=== PATIENT | male | born 1995 | race Hispanic/Latino ===

== ENCOUNTER 2022-08-26 09:19 | Emergency (ER) | payer OTHER, SELFPAY ==
[2022-08-26 09:43] LABS: Urine Blood Trace-intact (Negative); Urine Glucose Negative (Negative); Urine Protein Negative (Negative); Urine pH 6.5 (5.0-7.0)
[2022-08-26] MEDS ORDERED: FAMOTIDINE 20 MG/2 ML VIAL IV ONE (09:48)
[2022-08-26] MEDS ORDERED: KETOROLAC 30 MG/ML INJ ONE (09:48)
[2022-08-26] MEDS ORDERED: ONDANSETRON 4 MG/2 ML VIAL ONE (09:48)
[2022-08-26] MEDS ORDERED: NA CHLORIDE 0.9% 1,000 ML ONE (09:48)
[2022-08-26 09:54] LABS: Absolute Lymphocytes (CBC) 2.3 K/uL (0.7-4.9); Hematocrit 47.2 % (39.6-49.0); Lymphocytes % 26.9 % (15.3-44.8); MCV 85.1 fL (80-100); MPV 7.2 fL (7.6-11.3); RBC Red Blood Cell Count 5.55 M/uL (4.33-5.43)
[2022-08-26 10:14] LABS: Albumin 3.8 g/dL (3.4-5.0); Bilirubin Total 0.8 mg/dL (0.2-1.0); Potassium 4.2 mmol/L (3.5-5.1); Protein, Total 8.2 g/dL (6.4-8.2)
--- NOTE | 2022-08-26 10:33 | RAD REPORT ---
EXAM DESCRIPTION: US - Abdomen Exam Limited - 08/26/2022 10:14 am CLINICAL HISTORY: ABD PAIN COMPARISON: No comparisons FINDINGS: No gallstones, sludge or other abnormalities within the gallbladder lumen. There is no wal l thickening or pericholecystic fluid. No common duct stone or biliary tree dilatation identified. Partially imaged liver shows increased echogenicity likely a diffuse fatty infiltration. IMPRESSION: Normal gallbladder and biliary tree ultrasound. Fatty infiltration pattern seen in any partially imaged liver.
--- NOTE | 2022-08-26 11:08 | ER ---
Nurse's Notes [facility] Name: Tho Washington Age: 26 yrs Sex: Male : 1995 Arrival Date: 08/26/2022 Time: 09:23 Bed 13 Private MD: Diagnosis: Upper abdominal pain, unspecified Presentation: 08/26 09:28 Chief complaint: Patient states: Upper/RUQ abd pain for 3 days with nausea. Coronavirus ll1 screen: Vaccine status: Patient reports being unvaccinated. Client denies travel out of the [place] in the last 14 days. At this time, the client does not indicate any symptoms associated with coronavirus-19. Ebola Screen: Patient denies travel to an Ebola-affected area in the 21 days before illness onset. Initial Sepsis Screen: Does the patient meet any 2 criteria? No. Patient's initial sepsis screen is negative. Does the patient have a suspected source of infection? Yes: Acute abdominal pain. Risk Assessment: Do you want to hurt yourself or someone else? Patient reports no desire to harm self or others. Onset of symptoms was August 24, 2022. 09:28 Method Of Arrival: Ambulatory ll1 09:28 Acuity: ELLIOTT 3 ll1 Triage Assessment: :30 General: Appears uncomfortable, Behavior is calm, cooperative, appropriate for age. ll1 Pain: Complains of pain in abdomen Pain began 2-3 days ago. Neuro: No deficits noted. Cardiovascular: No deficits noted. GI: Reports upper abdominal pain, nausea. Historical: - Allergies: : No Known Allergies; ll1 - PMHx: : None; ll1 - PSHx: : None; ll1 - Immunization history:: Client reports having NOT received the Covid vaccine. - Social history:: Smoking status: Patient reports the use of cigarette tobacco products, denies chronic smoking, but will smoke occasionally. Screenin:30 [facility] ED Fall Risk Assessment (Adult) History of falling in the last 3 months, ko1 including since admission No falls in past 3 months (0 pts) Confusion or Disorientation No (0 pts) Intoxicated or Sedated No (0 pts) Impaired Gait No (0 pts) Mobility Assist Device Used No (0 pt) Altered Elimination No (0 pt) Score/Fall Risk Level 0 - 2 = Low Risk Oriented to surroundings, Maintained a safe environment, Educated pt \T\ family on fall prevention, incl call for assistance when getting out of bed, Assessed \T\ reinforced patient's understanding of fall precautions, Provided non-skid footwear, Hourly rounding (assess needs \T\ fall precautionary measures) done, Used ambulatory aids as needed (educated on \T\ assisted with), Used gait belt as appropriate. Abuse screen: Denies threats or abuse. Denies injuries from another. Nutritional screening: No deficits noted. Tuberculosis screening: No symptoms or risk factors identified. Assessment: 09:30 General: Appears in no apparent distress. uncomfortable, Behavior is calm, cooperative, ko1 appropriate for age. Pain: Complains of pain in abdomen. Neuro: No deficits noted. Cardiovascular: No deficits noted. Respiratory: No deficits noted. GI: No deficits noted. Reports lower abdominal pain, nausea. : No deficits noted. EENT: No deficits noted. Derm: No deficits noted. Musculoskeletal: No deficits noted. Vital Signs: 09:28 BP 128 / 85; Pulse 76; Resp 17; Temp 98.3(TE); Pulse Ox 100% on R/A; Weight 113.4 kg; ll1 Height 5 ft. 6 in. (167.64 cm); Pain 6/10; 11:31 BP 128 / 64; Pulse 77; Resp 16; Pulse Ox 99% ; ko1 09:28 Body Mass Index 40.35 (113.40 kg, 167.64 cm) ll1 ED Course: :23 Patient arrived in ED. as 09:23 Lupe Brown FNP-C [facility]. kb 09:23 Alphonso Liang DO is Attending Physician. kb 09:28 Mariella Murray, PRESLEY is Primary Nurse. ko1 09:28 Arm band placed on Patient placed in an exam room, on a stretcher. ll1 09:30 Triage completed. ll1 09:30 Patient has correct armband on for positive identification. Bed in low position. Call ko1 light in reach. campus monitor on. Pulse ox on. :30 Inserted saline lock: 20 gauge in right antecubital area, using aseptic technique. ko1 Blood collected. :53 CBC with Diff Sent. ko1 09:53 Lipase Sent. ko1 :53 CMP Sent. ko1 10:09 US Abdomen Limited In Process Unspecified. EDMS 11:31 No provider procedures requiring assistance completed. IV discontinued, intact, ko1 bleeding controlled, No redness/swelling at site. Pressure dressing applied. Administered Medications: 09:50 Drug: TORadol - (ketorolac) 15 mg Route: IVP; Site: right antecubital; ko1 11:15 Follow up: Response: No adverse reaction; Pain is decreased ko1 09:53 Drug: NS 0.9% 1000 ml Route: IV; Rate: 1 bolus; Site: right antecubital; ko1 11:14 Follow up: Response: No adverse reaction; IV Status: Completed infusion ko1 09:53 Drug: Zofran (Ondansetron) 4 mg Route: IVP; Site: right antecubital; ko1 11:15 Follow up: Response: No adverse reaction; Nausea is decreased ko1 09:56 Drug: Pepcid (famotidine) 20 mg Route: IVP; Site: right antecubital; ko1 11:15 Follow up: Response: No adverse reaction ko1 11:09 Drug: Bentyl (dicyclomine) 20 mg Route: PO; ko1 Medication: 11:31 VIS not applicable for this client. ko1 Outcome: 11:07 Discharge ordered by . kalpesh 11:31 Discharged to home ambulatory. ko1 11:31 Condition: improved 11:31 Discharge instructions given to patient, Instructed on discharge instructions, follow up and referral plans. medication usage, Demonstrated understanding of instructions, follow-up care, medications, Prescriptions given X 3. 11:39 Patient left the ED. ko1 Signatures: Dispatcher [employer] EDVT Lupe Brown FNP-C FNP-Kely Lorenzo as Cheikh Avalos, RN RN ll1 Mariella Murray, PRESLEY RN ko1
--- NOTE | 2022-08-26 11:08 | EDPHYS ---
Physician Documentation [facility] Name: Tho Washington Age: 26 yrs Sex: Male : 1995 Arrival Date: 08/26/2022 Time: 09:23 Bed 13 Private MD: ED Physician Alphonso Liang HPI: 08/26 10:58 This 26 yrs old Male presents to ER via Ambulatory with complaints of kb Epigastric Pain, Nausea. 10:58 The patient presents with abdominal pain in the upper abdomen. Onset: The kb symptoms/episode began/occurred 3 day(s) ago. The symptoms do not radiate. Associated signs and symptoms: Pertinent positives: nausea, Pertinent negatives: constipation, diarrhea, vomiting. The symptoms are described as constant. Modifying factors: The symptoms are alleviated by nothing, the symptoms are aggravated by nothing. Severity of pain: At its worst the pain was moderate in the emergency department the pain is unchanged. The patient has not experienced similar symptoms in the past. The patient has not recently seen a physician. Patient is a 26-year-old male with no medical history presents for 3-day history of upper abdominal pain with nausea. States pain started in right upper quadrant is moved to the left upper quadrant. Denies vomiting diarrhea constipation or fever. States pain does not get worse after eating but he feels like he cannot get full.. Historical: - Allergies: 09:28 No Known Allergies; ll1 - PMHx: 09:28 None; ll1 - PSHx: 09:28 None; ll1 - Immunization history:: Client reports having NOT received the Covid vaccine. - Social history:: Smoking status: Patient reports the use of cigarette tobacco products, denies chronic smoking, but will smoke occasionally. ROS: 11:02 Constitutional: Negative for fever, chills, and weight loss. kb 11:02 Abdomen/GI: Positive for abdominal pain, nausea, Negative for vomiting, diarrhea, constipation. 11:02 All other systems are negative. Exam: 11:02 Constitutional: This is a well developed, well nourished patient who is awake, alert, kb and in no acute distress. Head/Face: Normocephalic, atraumatic. ENT: Moist Mucous membranes Cardiovascular: Regular rate and rhythm with a normal S1 and S2. No gallops, murmurs, or rubs. No pulse deficits. Respiratory: Respirations even and unlabored. No increased work of breathing. Talking in full sentences Skin: Warm, dry with normal turgor. Normal color. MS/ Extremity: Pulses equal, no cyanosis. Neurovascular intact. Full, normal range of motion. Neuro: Awake and alert, GCS 15, oriented to person, place, time, and situation. Moves all extremities. Normal gait. 11:02 Abdomen/GI: Inspection: abdomen appears normal, Bowel sounds: normal, in all quadrants, Palpation: soft, in all quadrants, mild abdominal tenderness, in the right upper quadrant. Vital Signs: 09:28 BP 128 / 85; Pulse 76; Resp 17; Temp 98.3(TE); Pulse Ox 100% on R/A; Weight 113.4 kg; ll1 Height 5 ft. 6 in. (167.64 cm); Pain 6/10; 11:31 BP 128 / 64; Pulse 77; Resp 16; Pulse Ox 99% ; ko1 09:28 Body Mass Index 40.35 (113.40 kg, 167.64 cm) ll1 MDM: 09:26 Patient medically screened. kb 11:02 Differential diagnosis: cholecystitis, Cholelithiasis, gastritis, non-specific abd kb pain. Data reviewed: vital signs, nurses notes. Counseling: I had a detailed discussion with the patient and/or guardian regarding: the historical points, exam findings, and any diagnostic results supporting the discharge/admit diagnosis, lab results, radiology results, the need for outpatient follow up, a family practitioner, a scrap sorter, to return to the emergency department if symptoms worsen or persist or if there are any questions or concerns that arise at home. 08/26 09:32 Order name: CBC with Diff; Complete Time: 10:00 kb 08/26 09:32 Order name: CMP; Complete Time: 10:15 kb 08/26 09:32 Order name: Lipase; Complete Time: 10:15 kb 08/26 09:32 Order name: US Abdomen Limited; Complete Time: 10:45 kb 08/26 09:43 Order name: Urine Dipstick-Ancillary; Complete Time: 09:53 EDMS 08/26 09:32 Order name: IV Saline Lock; Complete Time: 09:52 kb 08/26 09:32 Order name: Labs collected and sent; Complete Time: 09:52 kb 08/26 09:32 Order name: Urine Dipstick-Ancillary (obtain specimen); Complete Time: 09:41 kb Administered Medications: 09:50 Drug: TORadol - (ketorolac) 15 mg Route: IVP; Site: right antecubital; ko1 11:15 Follow up: Response: No adverse reaction; Pain is decreased ko1 09:53 Drug: NS 0.9% 1000 ml Route: IV; Rate: 1 bolus; Site: right antecubital; ko1 11:14 Follow up: Response: No adverse reaction; IV Status: Completed infusion ko1 09:53 Drug: Zofran (Ondansetron) 4 mg Route: IVP; Site: right antecubital; ko1 11:15 Follow up: Response: No adverse reaction; Nausea is decreased ko1 09:56 Drug: Pepcid (famotidine) 20 mg Route: IVP; Site: right antecubital; ko1 11:15 Follow up: Response: No adverse reaction ko1 11:09 Drug: Bentyl (dicyclomine) 20 mg Route: PO; ko1 Disposition: 19:20 Co-signature as Attending Physician, Alphonso LAWSON was immediately available on-site ms3 in the Emergency Department for consultation in the care of the patient. Disposition Summary: 08/26/22 11:07 Discharge Ordered Location: Home kb Condition: Stable kb Diagnosis - Upper abdominal pain, unspecified kb Followup: kb - With: Emergency Department - When: As needed - Reason: Worsening of condition Followup: kb - With: Private Physician - When: 2 - 3 days - Reason: Recheck today's complaints, Continuance of care, Re-evaluation by your physician Discharge Instructions: - Discharge Summary Sheet kb - Abdominal Pain, Adult, [id number] kb Forms: - Medication Reconciliation Form kb - Thank You Letter kb - Antibiotic Education kb - Prescription Opioid Use kb Prescriptions: - Zofran 4 mg Oral Tablet - take 1 tablet by ORAL route every 8 hours As needed; 15 tablet; Refills: 0, kb Product Selection Permitted - dicyclomine 20 mg Oral Tablet - take 1 tablet by ORAL route 4 times per day As needed; 20 tablet; Refills: 0, kb Product Selection Permitted - Protonix 40 mg Oral Tablet - take 1 tablet by ORAL route once daily; 30 tablet; Refills: 0, Product kb Selection Permitted Signatures: Dispatcher [employer] Lupe Robb, CONTRACTING ANALYST-C CONTRACTING ANALYST-Cheikh Boo, RN RN ll1 Alphonso Liang, DO KRUEGER ms3 Mariella Murray, RN RN ko1
[2022-08-26] MEDS ORDERED: DICYCLOMINE HCL 10 MG CAP ONE (11:14)
[2022-08-26 11:47] VITALS: TEMP 98.3
[2022-08-26 11:48] VITALS: BP 128/64; O2SAT 99
== END 2022-08-26 11:39 | disposition home or self-care (01) ==
LOC: ER 09:19
DX: R10.13 Epigastric pain (principal)
CPT/HCPCS: 36415; 76705; 80053; 81003; 83690; 85025; 96361; 96374; 96375; 99284; J2405; J7030

== ENCOUNTER 2022-12-27 06:14 | Inpatient (IN) | payer SELFPAY ==
[2022-12-27 06:39] LABS: Lymphocytes % 7.5 % (15.3-44.8); MCV 86.2 fL (80-100); RBC Red Blood Cell Count 5.45 M/uL (4.33-5.43)
[2022-12-27 06:55] LABS: Albumin 3.7 g/dL (3.4-5.0); Potassium 4.1 mEq/L (3.5-5.1); Protein, Total 8.4 g/dL (6.4-8.2)
[2022-12-27 07:00] LABS: Specific Gravity 1.021 (1.005-1.030); Urine Bacteria None Seen /HPF (<20); Urine Bilirubin NEGATIVE (Negative); Urine Blood Negative (Negative); Urine Clarity Turbid (Clear); Urine Color Yellow (Yellow); Urine Glucose NEGATIVE (Negative); Urine Mucus 2+ /HPF (None Seen); Urine Protein 1+ (Negative); Urine RBC <5 /HPF (None Seen); Urine Urobilinogen Normal (Normal); Urine pH 7.5 (5.0-7.0)
[2022-12-27] MEDS ORDERED: MORPHINE 2 MG/ML SYR ONE ×2 (07:26→08:29)
[2022-12-27] MEDS ORDERED: ONDANSETRON 4 MG/2 ML VIAL ONE ×2 (07:27→12:11)
[2022-12-27] MEDS ORDERED: PIPERACIL/TAZO 3.375 GM VIAL IV ONE (07:27)
[2022-12-27] MEDS ORDERED: NA CHLORIDE 0.9% 1,000 ML ONE ×2 (07:27→08:29)
--- NOTE | 2022-12-27 07:50 | RAD REPORT ---
EXAM DESCRIPTION: CT - Abdomen Pelvis W Contrast - 12/27/2022 7:33 am CLINICAL HISTORY: Abdominal pain COMPARISON: none. TECHNIQUE: Computed axial tomography of the abdomen pelvis was obtained. 100 cc Isovue-300 was admin istered intravenously. Oral contrast was not requested which limits evaluation of bowel and appendix All CT scans are performed using dose optimization technique as appropriate and may include automated exposure control or mA/KV adjustment according to patient size. FINDINGS: Fatty liver Spleen, pancreas, adrenal and kidneys appear unremarkable. There is no evidence of diverticulitis. The appendix extends medially and and inferiorly from the cecum. Distal appendix is dilated. Large am ount of stranding surrounds the distal appendix with small amount of ill-defined fluid. No free air. No abscess IMPRESSION: Appendicitis which may be perforated
--- NOTE | 2022-12-27 08:07 | EDPHYS ---
Physician Documentation [facility] Name: Tho Washington Age: 27 yrs Sex: Male : 1995 Arrival Date: 12/27/2022 Time: 06:14 Bed 5 Private MD: ED Physician Kuldeep Vidales HPI: 12/27 08:01 This 27 yrs old Male presents to ER via Ambulatory with complaints of zeferino Abdominal Pain. 08:01 The patient presents with abdominal pain in the lower abdomen. Onset: The zeferino symptoms/episode began/occurred 3 day(s) ago. The symptoms do not radiate. Associated signs and symptoms: Pertinent positives: nausea and vomiting. Historical: - Allergies: 06:26 No Known Allergies; rv - PMHx: 06:26 Ulcer; rv - PSHx: :26 None; rv - Immunization history:: Adult Immunizations up to date. - Social history:: Smoking status: Patient reports the use of cigarette tobacco products, smokes one pack cigarettes per day. ROS: 08:03 Constitutional: Negative for fever, chills, and weight loss, Eyes: Negative for injury, zeferino pain, redness, and discharge, ENT: Negative for injury, pain, and discharge, Neck: Negative for injury, pain, and swelling, Cardiovascular: Negative for chest pain, palpitations, and edema, Respiratory: Negative for shortness of breath, cough, wheezing, and pleuritic chest pain, Back: Negative for injury and pain, : Negative for injury, bleeding, discharge, and swelling, MS/Extremity: Negative for injury and deformity, Skin: Negative for injury, rash, and discoloration, Neuro: Negative for headache, weakness, numbness, tingling, and seizure, Psych: Negative for depression, anxiety, suicide ideation, homicidal ideation, and hallucinations, Allergy/Immunology: Negative for hives, rash, and allergies, Endocrine: Negative for neck swelling, polydipsia, polyuria, polyphagia, and marked weight changes, Hematologic/Lymphatic: Negative for swollen nodes, abnormal bleeding, and unusual bruising. 08:03 Abdomen/GI: Positive for abdominal pain, nausea and vomiting, of the epigastric area, right upper quadrant and left upper quadrant. Exam: 08:03 Constitutional: This is a well developed, well nourished patient who is awake, alert, zeferino and in no acute distress. Head/Face: Normocephalic, atraumatic. Eyes: Pupils equal round and reactive to light, extra-ocular motions intact. Lids and lashes normal. Conjunctiva and sclera are non-icteric and not injected. Cornea within normal limits. Periorbital areas with no swelling, redness, or edema. ENT: Nares patent. No nasal discharge, no septal abnormalities noted. Tympanic membranes are normal and external auditory canals are clear. Oropharynx with no redness, swelling, or masses, exudates, or evidence of obstruction, uvula midline. Mucous membranes moist. Neck: Trachea midline, no thyromegaly or masses palpated, and no cervical lymphadenopathy. Supple, full range of motion without nuchal rigidity, or vertebral point tenderness. No Meningismus. Chest/axilla: Normal chest wall appearance and motion. Nontender with no deformity. No lesions are appreciated. Cardiovascular: Regular rate and rhythm with a normal S1 and S2. No gallops, murmurs, or rubs. Normal PMI, no JVD. No pulse deficits. Respiratory: Lungs have equal breath sounds bilaterally, clear to auscultation and percussion. No rales, rhonchi or wheezes noted. No increased work of breathing, no retractions or nasal flaring. Back: No spinal tenderness. No costovertebral tenderness. Full range of motion. Male : Normal genitalia with no discharge or lesions. Skin: Warm, dry with normal turgor. Normal color with no rashes, no lesions, and no evidence of cellulitis. MS/ Extremity: Pulses equal, no cyanosis. Neurovascular intact. Full, normal range of motion. Neuro: Awake and alert, GCS 15, oriented to person, place, time, and situation. Cranial nerves II-XII grossly intact. Motor strength 5/5 in all extremities. Sensory grossly intact. Cerebellar exam normal. Normal gait. Psych: Awake, alert, with orientation to person, place and time. Behavior, mood, and affect are within normal limits. 08:03 Abdomen/GI: Inspection: distension, that is moderate, Bowel sounds: diminished, in all quadrants, Palpation: moderate abdominal tenderness, rebound tenderness, voluntary guarding, is elicited in the right lower quadrant and left lower quadrant, Liver: no appreciated palpable abnormalities, Hernia: not appreciated. Vital Signs: 06:24 BP 132 / 81; Pulse 92; Resp 18; Temp 98.1(TE); Pulse Ox 100% ; Weight 113.4 kg; Height rv 5 ft. 6 in. ; Pain 8/10; 07:30 BP 121 / 78; Pulse 85; Resp 18; Pulse Ox 99% ; ko1 08:09 BP 131 / 71; Pulse 82; Resp 16; Pulse Ox 100% ; ko1 09:00 BP 109 / 75; Pulse 93; Resp 16; Pulse Ox 100% ; ko1 06:24 Body Mass Index 40.35 (113.40 kg, 167.64 cm) rv 06:24 Pain Scale: Adult rv MDM: 07:06 Patient medically screened. [facility] 08:03 Differential diagnosis: appendicitis, bowel obstruction, Cholelithiasis, gastritis, GI zeferino Bleed, Irritable bowel syndrome, non-specific abd pain, pancreatitis, Peptic Ulcer Disease, Peritonitis. Data reviewed: vital signs, nurses notes, lab test result(s), EKG, radiologic studies, CT scan. Consideration of Admission/Observation Patient was admitted/placed on observation. Escalation of care including admission/observation considered. Independent interpretation of the following test(s) in the Emergency Department CT Scan: My interpretation is perforated appendicitis. Test considered but Not performed: Ultrasound no abd usg. Care significantly affected by the following chronic conditions: Obesity, pud. 12/27 06:26 Order name: CBC with Diff; Complete Time: 07:07 kdr 12/27 06:26 Order name: CMP; Complete Time: 07:07 kdr 12/27 06:26 Order name: Lipase; Complete Time: 07:07 kdr 12/27 06:26 Order name: Urinalysis w/ reflexes; Complete Time: 07:07 kdr 12/27 07:09 Order name: CT Abd/Pelvis - IV Contrast Only; Complete Time: 07:51 zeferino 12/27 06:26 Order name: IV Saline Lock; Complete Time: 06:42 kdr 12/27 06:26 Order name: Labs collected and sent; Complete Time: 06:42 kdr 12/27 08:00 Order name: NPO; Complete Time: 08:01 zeferino Administered Medications: 07:27 Drug: NS 0.9% IV 1000 ml Route: IV; Rate: 1 bolus; Site: right antecubital; ko1 07:27 Drug: Ondansetron IVP 4 mg Route: IVP; Site: right antecubital; ko1 08:00 Follow up: Response: No adverse reaction; Nausea is decreased ko1 07:29 Drug: morphine IVP or IV 2 mg Route: IVP; Infused Over: 4 mins; Site: right antecubital;ko1 08:00 Follow up: Response: No adverse reaction; Pain is decreased ko1 07:32 Drug: Piperacillin-Tazobactam IVPB 3.375 grams Route: IVPB; Infused Over: 60 mins; ko1 Site: right antecubital; 08:27 Drug: morphine IVP or IV 2 mg Route: IVP; Infused Over: 4 mins; Site: right antecubital;bp 08:28 Drug: NS 0.9% IV 1000 ml Route: IV; Rate: 1 bolus; Site: right antecubital; bp 08:28 Drug: Famotidine IVP 20 mg Route: IVP; Site: right antecubital; bp Disposition Summary: 12/27/22 08:06 Hospitalization Ordered Hospitalization Status: Inpatient Admission zeferino Provider: Yonathan Alvarez cha [facility] zeferino Condition: Fair zeferino Problem: new zeferino Symptoms: are unchanged zeferino Bed/Room Type: Standard [facility] Room Assignment: 218(12/27/22 10:50) dw Diagnosis - Acute appendicitis with generalized peritonitis - perforated zeferino - Elevated white blood cell count zeferino Forms: - Medication Reconciliation Form zeferino - SBAR form zeferino Signatures: Dispatcher [employer] Chiqui Multani RN RN dw Anderson, Corey, MD MD cha Rittger, Kevin, MD MD kdr Peltier, Brian, RN RN bp Vicente, Ronaldo, RN RN rv Oliver, Kathy, RN RN ko1 Corrections: (The following items were deleted from the chart) 10:50 08:06 zeferino dw
--- NOTE | 2022-12-27 08:07 | ER ---
Nurse's Notes [facility] Name: Tho Washington Age: 27 yrs Sex: Male : 1995 Arrival Date: 12/27/2022 Time: 06:14 Bed 5 Private MD: Diagnosis: Acute appendicitis with generalized peritonitis-perforated;Elevated white blood cell count Presentation: 12/27 06:24 Chief complaint: Patient states: lower abdominal pain started 3 days ago with nausea rv and vomiting yesterday. undocumented fever today. pain rad to RLQ this morning. hx of gastric ulcer. last meal 5pm yesterday, last liquid at 0600 today. Coronavirus screen: Vaccine status: Patient reports being unvaccinated. Ebola Screen: Patient negative for fever greater than or equal to 101.5 degrees Fahrenheit, and additional compatible Ebola Virus Disease symptoms Patient denies exposure to infectious person. Patient denies travel to an Ebola-affected area in the 21 days before illness onset. Initial Sepsis Screen: Does the patient meet any 2 criteria? No. Patient's initial sepsis screen is negative. Does the patient have a suspected source of infection? No. Patient's initial sepsis screen is negative. Risk Assessment: Do you want to hurt yourself or someone else? Patient reports no desire to harm self or others. Onset of symptoms was December 25, 2022. 06:24 Method Of Arrival: Ambulatory 06:24 Acuity: ELLIOTT 3 rv Triage Assessment: 06:26 General: Appears uncomfortable, Behavior is calm, cooperative. Pain: Complains of pain rv in suprapubic area Pain radiates to right lower quadrant. Neuro: Level of Consciousness is awake, alert, obeys commands, Oriented to person, place, time, situation. Cardiovascular: Capillary refill < 3 seconds. Respiratory: Airway is patent Respiratory effort is even, unlabored, Respiratory pattern is. GI: Abdomen is round non-distended, Bowel sounds present X 4 quads. Reports lower abdominal pain, nausea, vomiting. Derm: Skin is intact. Historical: - Allergies: :26 No Known Allergies; rv - PMHx: 06:26 Ulcer; rv - PSHx: :26 None; rv - Immunization history:: Adult Immunizations up to date. - Social history:: Smoking status: Patient reports the use of cigarette tobacco products, smokes one pack cigarettes per day. Screenin:28 [facility] ED Fall Risk Assessment (Adult) History of falling in the last 3 months, rv including since admission No falls in past 3 months (0 pts). Abuse screen: Denies threats or abuse. Denies injuries from another. Nutritional screening: No deficits noted. Tuberculosis screening: No symptoms or risk factors identified. Assessment: 07:30 General: Appears in no apparent distress. comfortable, Behavior is calm, cooperative, ko1 appropriate for age. Pain: Complains of pain in right lower quadrant and abdomen. Neuro: No deficits noted. Cardiovascular: No deficits noted. Respiratory: No deficits noted. GI: Abd is soft X 4 quads. : No deficits noted. EENT: No deficits noted. Derm: No deficits noted. Musculoskeletal: No deficits noted. 10:53 Reassessment: attempted to call report to 2nd floor, receiving nurse Naya is in with a ko1 patient and will call me back. Vital Signs: 06:24 BP 132 / 81; Pulse 92; Resp 18; Temp 98.1(TE); Pulse Ox 100% ; Weight 113.4 kg; Height rv 5 ft. 6 in. ; Pain 8/10; 07:30 BP 121 / 78; Pulse 85; Resp 18; Pulse Ox 99% ; ko1 08:09 BP 131 / 71; Pulse 82; Resp 16; Pulse Ox 100% ; ko1 09:00 BP 109 / 75; Pulse 93; Resp 16; Pulse Ox 100% ; ko1 06:24 Body Mass Index 40.35 (113.40 kg, 167.64 cm) rv 06:24 Pain Scale: Adult rv ED Course: 06:16 Patient arrived in ED. ag3 06:24 Marvin Guerrero, RN is Primary Nurse. rv 06:26 Triage completed. rv 06:28 Arm band placed on right wrist. rv 06:28 Patient has correct armband on for positive identification. Client placed on continuous rv cardiac and pulse oximetry monitoring. NIBP monitoring applied. 06:43 Urine collected: clean catch specimen, cloudy, tea colored, blood tinged. jw7 06:43 Urinalysis w/ reflexes Sent. jw7 07:06 Kuldeep Vidales MD is Attending Physician. zeferino 07:35 CT Abd/Pelvis - IV Contrast Only In Process Unspecified. EDMS 08:05 Yonathan Alvarez MD is Hospitalizing Provider. zeferino 10:53 No provider procedures requiring assistance completed. Patient admitted, IV remains in ko1 place. Administered Medications: 07:27 Drug: NS 0.9% IV 1000 ml Route: IV; Rate: 1 bolus; Site: right antecubital; ko1 07:27 Drug: Ondansetron IVP 4 mg Route: IVP; Site: right antecubital; ko1 08:00 Follow up: Response: No adverse reaction; Nausea is decreased ko1 07:29 Drug: morphine IVP or IV 2 mg Route: IVP; Infused Over: 4 mins; Site: right antecubital;ko1 08:00 Follow up: Response: No adverse reaction; Pain is decreased ko1 07:32 Drug: Piperacillin-Tazobactam IVPB 3.375 grams Route: IVPB; Infused Over: 60 mins; ko1 Site: right antecubital; 08:27 Drug: morphine IVP or IV 2 mg Route: IVP; Infused Over: 4 mins; Site: right antecubital;bp 08:28 Drug: NS 0.9% IV 1000 ml Route: IV; Rate: 1 bolus; Site: right antecubital; bp 08:28 Drug: Famotidine IVP 20 mg Route: IVP; Site: right antecubital; bp Medication: 06:28 VIS not applicable for this client. rv Outcome: 08:06 Decision to Hospitalize by Provider. zeferino 11:21 Patient left the ED. aa5 Signatures: Dispatcher [employer] EDKuldeep Peacock MD MD cha Calderon, Audri, RN RN aa5 Jame Lu RN RN bp Vicente, Ronaldo, RN RN rv Latia Cheney3 Mahi Cabrera jw7 Mariella Murray RN RN ko1 Corrections: (The following items were deleted from the chart) 06:28 06:24 Chief complaint: Patient states: lower abdominal pain started 3 days ago with rv nausea and vomiting yesterday. undocumented fever today. pain rad to RLQ this morning. hx of gastric ulcer. rv
[2022-12-27] MEDS ORDERED: FAMOTIDINE 20 MG/2 ML VIAL IV ONE (08:29)
[2022-12-27] MEDS: Ringers Lactate 1,000 ML IV ONE (11:34)
[2022-12-27] MEDS ORDERED: FENTANYL CITR 100 MCG/2 ML ONE ×2 (12:09→12:49)
[2022-12-27] MEDS ORDERED: propofoL 200 MG/20 ML VIAL IV ONE (12:09)
[2022-12-27] MEDS ORDERED: MIDAZOLAM HCL 2 MG/2 ML INJ ONE (12:10)
[2022-12-27] MEDS ORDERED: LIDOCAINE 2% MPF 5 ML VIAL ONE ×2 (12:11→12:14)
[2022-12-27] MEDS ORDERED: ROCURONIUM 50 MG/5 ML VIAL IV ONE (12:12)
[2022-12-27] MEDS ORDERED: GLYCOPYRROLATE 0.2 MG/ML SYR ONE (12:12)
[2022-12-27] MEDS ORDERED: NEOSTIGMINE 1 MG/ML -10 ML VIAL ONE (12:14)
--- NOTE | 2022-12-27 12:32 | P.HP ---
Date of Service: 12/27/22 PC: This 27-year-old male presented to the emergency room with severe right lower quadrant abdominal pain for diagnosis and treatment. HPC: Patient has not felt well since last Started having a umbilical pain. Was located around his [facility]. This morning he woke up however when the pain became more severe, started and reached over to the right side of his abdomen. Describes symptom popping and at that time he had severe pain like fire. PSHx: Negative PMHx: No known medical issues Social Hx: No known allergies Sys R: No cough, wheeze, or shortness of breath. No chest pain or palpitations. No urinary complaints. Works as a contractor. Good exercise tolerance. O/E: Awake alert vital signs are stable HEENT: Not jaundiced Chest: Chest movement equal bilaterally Abd: Tender with guarding in the right lower quadrant [place]: Intact Data: Elevated white cell count with a shift, CT scan demonstrates acute appendicitis with possible rupture Impression: Acute abdomen with appendicitis Plan: I will taken the operating room for laparoscopic possible open appendectomy. The risks of this procedure have been discussed. The possibility of bleeding, infection, injury to bowel blood vessels and surrounding structures were outlined. The possible need for an open and or further surgeries and procedures in the future were described. Drainage of abscesses, and drain placement were explained. He understands and wants us to proceed.
[2022-12-27] MEDS ORDERED: dexAMETHasone 4 MG/ML VIAL ONE (12:49)
[2022-12-27] MEDS ORDERED: KETOROLAC 30 MG/ML INJ ONE (12:50)
--- NOTE | 2022-12-27 13:38 | P.OP ---
Preoperative diagnosis: Acute abdomen with appendicitis Postoperative diagnosis: The same Primary procedure: Laparoscopic appendectomy Secondary procedure: Lysis of adhesions Anesthesia: General Estimated blood loss: Less than 10 cc Specimen: 1 appendix Operative Technique: The patient brought the operating room and placed supine on the table. After the induction of adequate general endotracheal anesthesia, there the abdomen was prepped with a DuraPrep solution, he was draped in usual aseptic manner. A subumbilical incision was made. This was brought down through the skin and subcutaneous tissue. With the Visiport we were now able to enter the peritoneal cavity and created pneumoperitoneum to approximately 12 mmHg. Under direct vision a 5 mm trocar was placed in the lower midline and another on the right lateral side of the abdomen. The patient was then placed in Trendelenburg. The the table was tilted to the left. We could visualize the right lower quadrant. After manipulating the small bowel we found that the cecum was adherent to the right lateral sidewall of the pelvis. An acutely inflamed appendix was noted. There was some cloudy serous fluid seen around the appendix, but no evidence of any pus or pop rupture. This fluid was aspirated from the peritoneal cavity. The appendix was identified. It was actually not inflamed at the base more distally. Grasping this portion of the appendix were able to create a window in the mesentery of the appendix. After carefully dissecting this and widely the linear stapler can now be introduced into the peritoneal cavity, placed across the base of the appendix at its junction with the cecum, and the instrument was fired. The appendix was now carefully picked down using the hand-held Bovie rear admiral. The vascular trunk was identified. We were able to place a vascular reload of our stapler across this and it was fired. The appendix having now been detached was placed in an Endo Catch and brought out through the umbilical trocar site. We went back to the right lower quadrant. This Area was carefully irrigated with a saline solution until the effluent was clear. The patient was taken out of Trendelenburg. We were now able to view down into the true pelvis. Once again the irrigating fluid was aspirated from the true pelvis. At this point the pneumoperitoneum was collapsed, 2 previously placed absorbable sutures that have been set with the Endo Close were tied. [place] were then applied to the skin. At the end of the procedure the patient was in a stable condition was sent to [facility] recovery room. Needle sponge instrument count were correct. No drains were placed. Complications: None Transferred to: Recovery Room Condition: Good
[2022-12-27] MEDS ORDERED: MORPHINE 4 MG/ML SYR IV PRN (13:47)
[2022-12-27] MEDS ORDERED: Ringers Lactate 1,000 ML IV ONE (13:56)
[2022-12-27] MEDS ORDERED: HYDROMORPHONE HCL 1 MG/ML INJ ONE (14:13)
[2022-12-27] MEDS: NA CHLORIDE 0.9% 1,000 ML IV SCH ×2 (14:33→20:55)
[2022-12-27 14:46] VITALS: BMI 40.3
[2022-12-27] MEDS: MORPHINE 4 MG/ML SYR IV PRN (15:48)
[2022-12-27] MEDS: PIPER TAZO 3.375 GM in NA CHLORIDE 0.9% 100 ML IV SCH (15:50)
[2022-12-27] MEDS: HYDROCODONE/APAP 7.5/325 MG TAB PO PRN (19:37)
[2022-12-27] MEDS: FAMOTIDINE 20 MG/2 ML VIAL IV SCH (20:55)
[2022-12-27] MEDS: ACETAMINOPHEN 325 MG TABLET PO PRN (21:03)
[2022-12-28] MEDS: PIPER TAZO 3.375 GM in NA CHLORIDE 0.9% 100 ML IV SCH ×3 (00:39→16:06)
[2022-12-28] MEDS: MORPHINE 4 MG/ML SYR IV PRN (00:44)
[2022-12-28] MEDS: NA CHLORIDE 0.9% 1,000 ML IV SCH ×4 (03:57→22:58)
[2022-12-28] MEDS: ACETAMINOPHEN 325 MG TABLET PO PRN (05:43)
[2022-12-28] MEDS: HYDROCODONE/APAP 7.5/325 MG TAB PO PRN ×3 (05:43→22:17)
[2022-12-28 07:12] LABS: Absolute Lymphocytes (CBC) 0.7 K/uL (0.7-4.9); Hematocrit 41.1 % (39.6-49.0); Lymphocytes % 7.8 % (15.3-44.8); MCV 85.7 fL (80-100); MPV 7.1 fL (7.6-11.3); RBC Red Blood Cell Count 4.79 M/uL (4.33-5.43)
[2022-12-28 07:36] LABS: Albumin 2.7 g/dL (3.4-5.0); Bilirubin Direct 0.5 mg/dL (0-0.2); Bilirubin Indirect, Calculated 1.3 mg/dL (0.2-0.8); Bilirubin Total 1.8 mg/dL (0.2-1.0); Potassium 3.6 mEq/L (3.5-5.1); Protein, Total 6.8 g/dL (6.4-8.2)
[2022-12-28] MEDS: FAMOTIDINE 20 MG/2 ML VIAL IV SCH ×2 (07:48→20:16)
[2022-12-28 08:53] LABS: Blood Morphology Comment NOT SEEN (NOT SEEN); Platelet Estimate ADEQ; White Blood Cell Scan OK (OK)
[2022-12-28] MEDS: ONDANSETRON 4 MG/2 ML VIAL IV PRN (13:55)
--- NOTE | 2022-12-28 14:53 | P.PN ---
Date of Service: 12/28/22 S: Patient is doing well today. Has some nausea, no vomiting. Did have a fever earlier today. Is on antibiotics and his vital signs are stable. O: Incisions are clean, mildly tympanic on palpation. Incisions are clean. A: Stable status post laparoscopic appendectomy. Appears to have a mild postop ileus. P: Patient has been encouraged to get up and ambulate. He was instructed by the nurses how to use his IV when he does so. Encourage p.o. intake. He will be able to shower this evening. Anticipate discharge in the a.m.
[2022-12-29] MEDS: PIPER TAZO 3.375 GM in NA CHLORIDE 0.9% 100 ML IV SCH ×2 (00:16→07:51)
[2022-12-29] MEDS: NA CHLORIDE 0.9% 1,000 ML IV SCH ×2 (05:58→12:21)
[2022-12-29] MEDS: FAMOTIDINE 20 MG/2 ML VIAL IV SCH (07:51)
[2022-12-29] MEDS: ONDANSETRON 4 MG/2 ML VIAL IV PRN (08:33)
[2022-12-29 08:58] VITALS: BP 152/90; TEMP 97.3
[2022-12-29 09:49] VITALS: O2SAT 100
--- NOTE | 2022-12-29 13:17 | P.DS ---
Admission Date: 12/27/22 Discharge Date: 12/29/22 Disposition: ROUTINE DISCHARGE Discharge Condition: GOOD Reason for Admission: Acute postoperative abdominal pain Procedures: Laparoscopic appendectomy Brief History of Present Illness: The patient had been having abdominal pain for approximately 72 hours prior to his admission. He was complaining of right lower quadrant abdominal pain that increased. Hospital Course: The patient was evaluated in the emergency room. He was found to have acute abdomen with appendicitis. He underwent a laparoscopic appendectomy which demonstrated suppuration and possible perforation. He was admitted postoperatively for observation pain control and IV antibiotics. Today he is afebrile, has some nausea still most likely related to his antibiotics. Has been having bowel movements however and voiding well on his own. He is anxious to go home, and has been deemed fit for discharge. Vital Signs/Physical Exam: Temp Pulse Resp BP Pulse Ox 97.3 F 98 H 18 152/90 H 94 12/29/22 08:00 12/29/22 08:00 12/29/22 08:00 12/29/22 08:00 12/29/22 08:00 Laboratory Data at Discharge: WBC 8.40 thou/uL (4.3-10.9) 12/28/22 06:55 Hgb 13.7 g/dL (13.6-17.9) D 12/28/22 06:55 Hct 41.1 % (39.6-49.0) 12/28/22 06:55 Plt Count 256 thou/uL (152-406) 12/28/22 06:55 Sodium 134 mEq/L (136-145) L 12/28/22 06:55 Potassium 3.6 mEq/L (3.5-5.1) 12/28/22 06:55 BUN 9 mg/dL (7-18) 12/28/22 06:55 Creatinine 0.90 mg/dL (0.70-1.30) 12/28/22 06:55 Glucose 104 mg/dL (74-106) 12/28/22 06:55 Total Bilirubin 1.8 mg/dL (0.2-1.0) H 12/28/22 06:55 AST 19 U/L (15-37) 12/28/22 06:55 ALT 38 U/L (16-61) 12/28/22 06:55 Alkaline Phosphatase 84 U/L (45-117) D 12/28/22 06:55 Lipase 98 U/L (13-75) H 12/28/22 06:55 Home Medications: NK [No Home Meds] 12/27/22 Physician Discharge Instructions: Discontinue IV, discharge home. Pain medicine as needed. Clear liquids, advance diet as tolerated. May take Tums for upset stomach. Change dressings as needed. You may shower. We will see you next in my office for an appointment, call in advance. Any questions or problems, go to the emergency room, or contact me Diet: Regular Activity: Ad aden Followup: NONE,NONE [Primary Care Provider] -
== END 2022-12-29 14:04 | disposition home or self-care (01) | DRG 339 ==
LOC: ER 06:14 → ERHOLD 08:08 → 2ND 11:32
PROVIDERS: ADMIT Surgery; ATTEND Surgery
PROC: 0DTJ4ZZ Resection of Appendix, Percutaneous Endoscopic Approach (ICD-10-PCS; principal; 2022-12-27 11:30)
DX: K35.32 Acute appendicitis with perforation, localized peritonitis, and gangrene, without abscess (principal); K56.7 Ileus, unspecified; K91.89 Other postprocedural complications and disorders of digestive system; Z68.41 Body mass index [BMI] 40.0-44.9, adult; Y83.8 Other surgical procedures as the cause of abnormal reaction of the patient, or of later complication, without mention of misadventure at the time of the procedure; Y92.239 Unspecified place in hospital as the place of occurrence of the external cause; K66.0 Peritoneal adhesions (postprocedural) (postinfection); E66.9 Obesity, unspecified; F17.210 Nicotine dependence, cigarettes, uncomplicated
CPT/HCPCS: 36415; 74177; 80048; 80053; 80076; 81001; 83605; 83690; 85025; 88304; 96374; 96375; 99284; J1100; J1170; J2001; J2250; J2270; J2405; J2543; J2704; J2710; J3010; J7030; J7120; Q9967